=== PATIENT | female | born 1995 | race Hispanic/Latino ===

== ENCOUNTER 2018-08-01 16:34 | Emergency (ER) | payer OTHER ==
[2018-08-01 16:42] VITALS: TEMP 98.2
[2018-08-01] MEDS ORDERED: Lidocaine 5% Patch TD STA (16:56)
[2018-08-01] MEDS ORDERED: Lidocaine 5% Patch TD ONE (17:02)
--- NOTE | 2018-08-01 18:25 | ED PDOC ---
HPI: Back Time Seen by Provider: 08/01/18 16:48 Chief Complaint (Nursing): Back Pain Chief Complaint (Provider): Back Pain History Per: Patient History/Exam Limitations: no limitations Onset/Duration Of Symptoms: Days Current Symptoms Are (Timing): Still Present Additional Complaint(s): 22 y/o female presents to the ED for evaluation of back pain, onset three hours ago. Patient reports of developing back pain at around 2 PM today. Patient states she was walking down her basement stairs when she slipped and fell chcf down the rest of the stairs. Patient states pain is right sided and constant. Patient reports pain worsens with walking and sitting up. Patient reports of taking 800 mg of Ibuprofen prior to arrival with minimal relief. Patient states pain occasionally shoot up the back and down the legs. Otherwise, patient denies weakness, numbness, bowel or urinary incontinence and retention. PMD: none provided Past Medical History Reviewed: Historical Data, Nursing Documentation, Vital Signs Vital Signs: Last Vital Signs Temp 98.2 F 08/01/18 16:40 Pulse 82 08/01/18 16:40 Resp 16 08/01/18 16:40 BP 128/88 08/01/18 16:40 Pulse Ox 98 08/01/18 16:40 - Medical History PMH: No Chronic Diseases Denies: Chronic Kidney Disease - Surgical History Other surgeries: tympanostomy and adenoidectomy - Family History Family History: States: No Known Family Hx - Social History Current smoker - smoking cessation education provided: No - Home Medications Home Medications: Ambulatory Orders Medication Instructions Recorded Acetaminophen [Tylenol Extra 1,000 mg PO Q6 PRN #100 tablet 08/01/18 Strength] Cyclobenzaprine [Flexeril] 5 mg PO Q8 PRN #15 tab 08/01/18 Ibuprofen [Motrin Tab] 600 mg PO Q8 PRN #60 tab 08/01/18 Lidocaine 5% [Lidoderm] 1 ea TD DAILY PRN #30 patch 08/01/18 - Allergies Allergies/Adverse Reactions: Allergies Allergy/AdvReac Type Severity Reaction Status Date / Time clindamycin Allergy URTICARIA Verified 08/01/18 16:43 Sulfa (Sulfonamide Allergy URTICARIA Verified 08/01/18 16:43 Antibiotics) Review of Systems ROS Statement: Except As Marked, All Systems Reviewed And Found Negative Genitourinary Female: Negative for: Incontinence Musculoskeletal: Positive for: Back Pain, Leg Pain Neurological: Negative for: Weakness, Numbness Physical Exam - Reviewed Nursing Documentation Reviewed: Yes Vital Signs Reviewed: Yes - Physical Exam Appears: Positive for: Non-toxic, In Acute Distress (mild, painful ) Head Exam: Positive for: ATRAUMATIC, NORMOCEPHALIC Skin: Positive for: Warm, Dry Gastrointestinal/Abdominal: Positive for: Soft. Negative for: Tenderness Back: Positive for: Muscle Spasm, Other (Superficial scrape to the back. Erythema noted to the midline lumbar spine. Tenderness to palpation of the right paraspinal lumbar area. No tenderness to palpation to the midline region. ). Negative for: L CVA Tenderness, R CVA Tenderness Extremity: Positive for: Other (Negative straight leg raise bilaterally. 5/5 strength in the lower extremiteis. Light touch intact. ) Neurologic/Psych: Positive for: Alert, Oriented (x3), Gait (steady). Negative for: Motor/Sensory Deficits - ECG O2 Sat by Pulse Oximetry: 98 (RA) Pulse Ox Interpretation: Normal Medical Decision Making Medical Decision Making: Time: 1655 Impression: Back Injury Rule out fracture Plan: -- ED Urine -- Flexeril 10 mg PO -- Lidoderm 1 ea TD -- Toradol 15 mg IM -- Tylenol 975 mg PO -- LS Spine AP/LAT XR 7p LS Spine No fx/dislocation On reeval pt feels better. Stable for dc. DW pt findings and plan of care. Minimize exercise but avoid strict bedrest/immobilization. Followup [facility] or PMD in 48 hours. Scribe Attestation: Documented by Jett James, acting as a scribe for Sirena Soares MD. Provider Scribe Attestation: All medical record entries made by the Scribe were at my direction and personally dictated by me. I have reviewed the chart and agree that the record accurately reflects my personal performance of the history, physical exam, medic al decision making, and the department course for this patient. I have also personally directed, reviewed, and agree with the discharge instructions and disposition. Disposition - Clinical Impression Clinical Impression: Back contusion Counseled Patient/Family Regarding: Studies Performed, Diagnosis, Need For Followup, Rx Given - Disposition Referrals: Isabela Christina [Outside] Disposition: Routine/Home Disposition Time: 19:00 Condition: IMPROVED Additional Instructions: FOLLOW UP WITH ISABELA JAVED OR YOUR PMD IN 48 HOURS FOR REEVALUATION Prescriptions: Acetaminophen [Tylenol Extra Strength] 1,000 mg PO Q6 PRN #100 tablet PRN Reason: FEVER OR PAIN Cyclobenzaprine [Flexeril] 5 mg PO Q8 PRN #15 tab PRN Reason: muscle spasm Ibuprofen [Motrin Tab] 600 mg PO Q8 PRN #60 tab PRN Reason: Pain, Moderate (4-7) Lidocaine 5% [Lidoderm] 1 ea TD DAILY PRN #30 patch PRN Reason: PAIN Instructions: Low Back Pain (DC), Contusion (DC) Forms: Isabela Javed (Bulgarian)
[2018-08-01 19:23] VITALS: BP 110/61; PULSE 71; RESP 17; O2SAT 99
--- NOTE | 2018-08-02 09:27 | RAD ---
Date of service: 08/01/2018 PROCEDURE: Radiographs of the Lumbar Spine. HISTORY: fall RIGHT sided back pain COMPARISON: No prior. FINDINGS: BONES: Straightening of the normal lordosis with gentle levoconvex curvature centered at L3. No listhesis. No fracture. DISC SPACES: Unremarkable. OTHER FINDINGS: None. IMPRESSION: Straightening of the normal lordosis may be related to positioning/spasm. No acute fracture.
== END 2018-08-01 19:25 | disposition home or self-care (01) ==
LOC: H.ER 16:34
DX: S39.92XA Unspecified injury of lower back, initial encounter (principal); W01.0XXA Fall on same level from slipping, tripping and stumbling without subsequent striking against object, initial encounter; Y92.89 Other specified places as the place of occurrence of the external cause; Z88.2 Allergy status to sulfonamides
CPT/HCPCS: 72100; 81025; 96372; 99284; J1885